=== PATIENT | male | born 1960 | race Caucasian/White ===

== ENCOUNTER 2018-08-11 09:30 | Day surgery (SDC) | payer SELFPAY ==
--- NOTE | 2018-08-11 10:18 | EDPHY ---
H & P Smoking Status: Never smoked Time Seen by Provider: 08/11/18 09:54 HPI/ROS: CLINICAL IMPRESSION: Dysphagia, possible esophageal foreign body ASSESSMENT/PLAN: 58-year-old otherwise healthy male with no reported past medical history presents to the emergency department with complaints of throat tightness and difficulty swallowing after eating a burrito 24 hr prior to arrival. Patient reports he believes he got the portion of lodged burrito out but is unable to swallow solid food and can tolerate only small amounts of fluid. He is not vomiting, he is tolerating secretions well. I personally visualized the patient swallowing small liquid boluses with no vomiting or regurgitation although he reports tightness substernally. No shortness of breath, chest pain , fever, abdominal pain. Patient is uninsured and self pay today. Discussed with Dr. Danielson. It is my impression that patient does need EGD and option by GI was provided to perform this today from the ED or as an outpatient tomorrow. However after case management was able to talk to the GI office and provide an estimate for patient's outpatient cost, patient became concerned that he could not afford this. He does not qualify for Medicaid. He also met with financial sales advisor she from the hospital. Dr. Mahajan spoke with Dr. Danielson and it was determined patient would be best served with EGD later today. Patient refused IV in the ED despite my informing him that he will need an IV for sedation prior to procedure. Dr. Mahajan relayed recommendations to the patient. He is in agreement. Was kept NPO and was stable in ED prior to transport to endoscopy suite with Dr. Danielson at 2:30 p.m.. DIFFERENTIAL DX: Differential diagnosis includes but not limited to is obstructed esophageal foreign body, esophageal stricture, esophageal mass, achalasia, esophagitis, dysphagia ED COURSE: 10:00 a.m.:. Patient's case and presentation discussed with Dr. Danielson from GI. I was asked by GI with the patient's insurance status is, which is self pay. Because patient is tolerating secretions, is able to get small sips of water and Pepsi down, however is unable to swallow solid food. it was felt by GI that he could either have EGD later this afternoon or have EGD as an outpatient however I was told that patient will be responsible for 80% of the total cost outpatient up front. Patient is understandably concerned about the financial obligations for this procedure as he is self pay. We confirmed with Dr. Danielson office the outpatient cost for an EGD with self pay discount which patient is alarmed about and states he is unable to afford. Patient unfortunately does not qualify for Medicaid. Case reviewed with the ED attending Dr. Mahajan. It is our opinion the patient requires endoscopy due to the fact that he cannot swallow solid food and that this would be better performed sooner rather than later. Dr. Mahajan then left message for Dr. Danielson to discuss further. Patient was kept NPO by myself for presumed EGD later this afternoon. 12:30 p.m.: Dr. Mahajan spoke with Dr. Danielson. Will plan to keep the patient in the ED until EGD at approximately 1:[address] Mahajan spoke with the patient regarding this discussion with GI and further recommendations. 1:15 p.m.: Patient apparently refusing IV and IV fluids. He did again meet with financial counselor and got the information he wanted and has agreed to EGD in the hospital. Awaiting Dr. Danielson arrival at 2:30 pm CHIEF COMPLAINT: Questionable foreign body in the esophagus HPI: 58-year-old otherwise healthy male presents to the emergency department with a mild tightness and foreign body sensation in the lower esophagus since 10:00 a.m. Yesterday. Patient reports he had a bite of a burrito yesterday, felt as though it got stuck in the lower esophagus and was able to spit up a portion of the burrito. He does not feel that there is any food bolus remaining although he notes difficulty passing large gulps of water and is unable to eat food. He has had symptoms like this in the past associated with GERD which seemed to self resolve 6 months ago. He is not currently taking a PPI or acid reflux medications. No complaints of chest pain, shortness of breath. No hematemesis. He is tolerating secretions well. He has never had an EGD or seen GI for this. PAST MEDICAL HISTORY: None reported Pertinent Past Surgical History: None reported Family History: Noncontributory Social History: Otherwise healthy, nonsmoker, does not drink alcohol regularly , uninsured, self-pay. ROS: A full 10 point review of systems was negative except for those mentioned in HPI. PHYSICAL EXAM: General Appearance: Alert, oriented, appropriate, cooperative, NAD, well hydrated, non-toxic appearing, VSS, no hypoxia. Patient is tolerating secretions well. I personally watched him drink small sips of water and Pepsi without regurgitation or vomiting. Patient reports inability to swallow solid food. HEENT: Oropharynx clear is no erythema or exudates, no tonsillar hypertrophy or asymmetry. Dentition without abnormality. Neck: Supple, nontender, no lymphadenopathy, no midline pain, FROM, no meningismus. Respiratory: There are no retractions, lungs are clear to auscultation. Cardiac: Regular rate and rhythm, no murmurs or gallops. Gastrointestinal: Abdomen is soft, nontender, bowel sounds normal, no masses/ hernia, no rigidity, guarding or focal peritoneal findings. Skin: Warm, dry, no rashes, no nodules on palpation. MEDICAL DECISION MAKING: Patient was seen independently. Secondary supervising physician at time of evaluation was Dr. Mahajan. Diagnosis: Esophagitis, dysphagia, possible esophageal foreign body. New, requires workup Summary: See Assessment and Plan for summary of ED visit Discussed patient with another provider: Dr. Mahajan, Dr. Danielson, case management Patient Progress: Stable. (Barber Rivera) Constitutional: Initial Vital Signs Temperature (C) 36.2 C 08/11/18 09:33 Heart Rate 73 08/11/18 09:33 Respiratory Rate 18 08/11/18 09:33 Blood Pressure 152/96 H 08/11/18 09:33 O2 Sat (%) 97 08/11/18 09:33 O2 Delivery Mode Room Air O2 (L/minute) 6 Allergies/Adverse Reactions: No Known Allergies Allergy (Unverified 08/11/18 09:33) Home Medications: Medication Instructions Recorded NK [No Known Home Meds] 08/11/18 MDM/Departure - MDM ED Course/Re-evaluation: The patient was evaluated and managed by the Physician Spiral Tube Winder Helper. I discussed the patient's presentation and course with the physician physicians assistant and agree with the evaluation. My co-signature indicates that I have reviewed this chart and I agree with the findings and plan of care as documented. I am the secondary supervising physician. Patient seen briefly by myself. Resting comfortably and no drooling or respiratory distress. Has been sipping on water. Plan to go to GI lab at 3:[address] Danielson. Patient had many concerns regarding cost and has also discussed possiblity of having EGD as outpatient. In end, decided to have done today. (Ophelia Mahajan) - Depart Disposition: Home, Routine, Self-Care Clinical Impression: Esophageal foreign body Qualifiers: Encounter type: initial encounter Qualified Code(s): T18.108A - Unspecified foreign body in esophagus causing other injury, initial encounter Condition: Fair
[2018-08-11] MEDS ORDERED: LR 1,000 ML IV ONE (14:49)
--- NOTE | 2018-08-11 15:10 | PDGENHP ---
History & Physical Chief Complaint: Dysphagia History of Present Illness: 58 yo male with long history of GERD and prior dysphagia. Burrito stuck in esophagus at 10AM yesterday. To ER for ongoing problems with swallowing. Pertinent Past, Social, Family History: GERD. Dysphagia. Previous foreign body food impactions that have resolved spontaneously. No ETOH. No Tobacco. Relevant Physical Exam: NAD. CTA B/L. RRR without m/r/g. GI soft. NABS. NT/ND Cardiorespiratory Assessment: ASA II. EGD with MAC
[2018-08-11] MEDS ORDERED: PROPOFOL/EMULSION 500 MG/50 ML BOTTLE IV ONE (15:31)
[2018-08-11] MEDS ORDERED: ONDANSETRON 4 MG/2 ML VIAL IVP PRN (15:49)
[2018-08-11] MEDS ORDERED: NALOXONE HCL 0.4 MG/ML INJ IVP PRN (15:49)
--- NOTE | 2018-08-11 15:50 | PDANEPAE ---
ANE History of Present Illness FB in eso ANE Past Medical History - Cardiovascular History Hx Hypertension: No - Pulmonary History Hx Asthma/Reactive Airway Disease: No Hx Oxygen in Use at Home: No Hx Sleep Apnea: No - Endocrine History Hx Diabetes: No ANE Review of Systems Review of Systems: ANE Patient History - Allergies Allergies/Adverse Reactions: No Known Allergies Allergy (Unverified 08/11/18 09:33) - Home Medications Home medications: home medication list seen and reviewed Home Medications: NK [No Known Home Meds] 08/11/18 [Last Taken Unknown] - NPO status NPO Status: no food or drink >8 hours (NPO solids 15 hrs and clear liquids 3.5 hrs) NPO Since - Liquids (Date): 08/11/18 NPO Since - Liquids (Time): 12:00 NPO Since - Solids (Date): 08/10/18 NPO Since - Solids (Time): 10:00 - Anes Hx Anes Hx: no prior problems - Smoking Hx Smoking Status: Never smoked ANE Labs/Vital Signs - Vital Signs Blood Pressure: 142/77 Heart Rate: 78 Respiratory Rate: 16 O2 Sat (%): 97 Height: 177.8 cm Weight: 88.451 kg ANE Physical Exam - Airway Neck exam: FROM Mallampati Score: Class 2 Mouth exam: normal dental/mouth exam - Pulmonary Pulmonary: no respiratory distress - Cardiovascular Cardiovascular: regular rate and rhythym - ASA Status ASA Status: II ANE Anesthesia Plan Anesthesia Plan: MAC
--- NOTE | 2018-08-11 15:53 | PDANEPAE ---
ANE History of Present Illness FB eso ANE Past Medical History - Cardiovascular History Hx Hypertension: No - Pulmonary History Hx Asthma/Reactive Airway Disease: No Hx Oxygen in Use at Home: No Hx Sleep Apnea: No - Endocrine History Hx Diabetes: No ANE Review of Systems Review of Systems: ANE Patient History - Allergies Allergies/Adverse Reactions: No Known Allergies Allergy (Unverified 08/11/18 09:33) - Home Medications Home medications: home medication list seen and reviewed Home Medications: NK [No Known Home Meds] 08/11/18 [Last Taken Unknown] - NPO status NPO Status: no food or drink >8 hours (npo solids 15 hrs and clear liquids 3.5 hr) NPO Since - Liquids (Date): 08/11/18 NPO Since - Liquids (Time): 12:00 NPO Since - Solids (Date): 08/10/18 NPO Since - Solids (Time): 10:00 - Anes Hx Anes Hx: no prior problems - Smoking Hx Smoking Status: Never smoked ANE Labs/Vital Signs - Vital Signs Blood Pressure: 142/77 Heart Rate: 78 Respiratory Rate: 16 O2 Sat (%): 97 Height: 177.8 cm Weight: 88.451 kg ANE Physical Exam - Airway Neck exam: FROM Mallampati Score: Class 2 Mouth exam: normal dental/mouth exam - Pulmonary Pulmonary: no respiratory distress - Cardiovascular Cardiovascular: regular rate and rhythym - ASA Status ASA Status: II ANE Anesthesia Plan Anesthesia Plan: MAC
--- NOTE | 2018-08-11 15:53 | GIREPORT ---
[facility] - Endoscopy Department Patient Name: Taye Gallo Procedure Date: 08/11/2018 3:10 PM Patient Type: Emergency Department Attending MD/ ER Physician: Hugh Danielson MD Procedure: Upper GI endoscopy Indications: Dysphagia, Foreign body in the esophagus Providers: Hugh Danielson MD Medicines: Propofol per Anesthesia Complications: No immediate complications. Description of Procedure: After obtaining informed consent, the endoscope was passed under direct vision. Throughout the procedure, the patient's blood pressure, pulse, and oxygen saturations were monitored continuously. The Endoscope was intro duced through the mouth, and advanced to the second part of duodenum. [facility] GI endoscopy was accomplished without difficulty. The patient tolerated th e procedure well. Findings: Mucosal changes including ringed esophagus and longitudinal furrows wer e found in the middle third of the esophagus and in the lower third of th e esophagus. Esophageal findings were graded using the Eosinophilic Esophagitis Endoscopic Reference Score (EoE-EREFS) as: Edema Grade 1 Pr esent (decreased clarity or absence of vascular markings), Rings Grade 2 Mode rate (distinct rings that do not occlude passage of diagnostic 8-10 mm endoscope), Exudates Grade 0 None (no white lesions seen), Furrows Grad e 1 Present (vertical lines with or without visible depth) and Stricture pr esent (11 mm luminal diameter). Biopsies were obtained from the proximal and distal esophagus with cold forceps for histology of suspected eosinophi lic esophagitis. Food was found in the middle third of the esophagus and in the lower th ird of the esophagus. Removal of food was accomplished. The stomach was normal. The examined duodenum was normal. Estimated Blood Loss: Estimated blood loss was minimal. Post Op Diagnosis: - Esophageal mucosal changes suggestive of eosinophilic esophagitis. Biopsied. - Food in the middle third of the esophagus and in the lower third of t he esophagus. Removal was successful. - Normal stomach. - Normal examined duodenum. Recommendation: - Await pathology results. - No aspirin, ibuprofen, naproxen, or other non-steroidal anti-inflamma tory drugs. - Use Prilosec (omeprazole) 40 mg PO daily. - Mechanical soft diet. - Return to GI office at the next available appointment. - Discharge patient to home (ambulatory). - Thank you for allowing me to be involved in the care of your patient. Attending Participation: I personally performed the entire procedure without the assistance of a fellow, resident or surg ical technical administrative assistant. Hugh Danielson MD Hugh Danielson MD 08/11/2018 3:53:11 PM This report has been signed electronicallyDavid MD Jagjit Number of Addenda: 0 Note Initiated On: 08/11/2018 3:10 PM [email or web address]
--- NOTE | 2018-08-11 15:58 | POSTANESTH ---
Post Anesthetic Evaluation Cardiovascular Status: Similar to Pre-Op Cond Respiratory Status: Similar to Pre-op Cond. Level of Consciousness/Mental Status: Can Participate in Eval Pain Control: Adequate, Prn Tx Ordered Nausea/Vomiting Control: Adequate, Prn Tx Ordered Complications Possibly Related to Anesthesia: None Noted
[2018-08-11 17:42] VITALS: BP 140/93
== END 2018-08-11 16:50 | disposition home or self-care (01) ==
LOC: FSGY 09:30 → EDSTATUS 14:39 → FSGY 16:50
PROVIDERS: ATTEND Internal Medicine Gastroenterology
DX: T18.128A Food in esophagus causing other injury, initial encounter (principal); K20.0 Eosinophilic esophagitis; K21.9 Gastro-esophageal reflux disease without esophagitis; R13.10 Dysphagia, unspecified
CPT/HCPCS: J2704